=== PATIENT | male | born 1965 ===

== ENCOUNTER → 2022-09-02 07:16 | Outpatient (CLI) | payer OTHER | END | disposition home or self-care (01) | LOC: LAB 07:16 | PROVIDERS: ATTEND Internal Medicine Cardiovascular Disease | DX: E78.1 Pure hyperglyceridemia (principal); I10 Essential (primary) hypertension; Z13.9 Encounter for screening, unspecified; E78.00 Pure hypercholesterolemia, unspecified ==

== ENCOUNTER 2022-09-02 08:17 | Outpatient (CLI) | payer OTHER | END 2022-09-02 08:25 | disposition home or self-care (01) | LOC: RAD 08:17 | PROVIDERS: ATTEND Internal Medicine Cardiovascular Disease | DX: I10 Essential (primary) hypertension (principal); K42.9 Umbilical hernia without obstruction or gangrene; Z80.9 Family history of malignant neoplasm, unspecified ==